=== PATIENT | male | born 1950 | race Caucasian/White ===

== ENCOUNTER 2017-10-27 23:54 | Emergency (ER) | payer MEDICARE, SELFPAY ==
[2017-10-28 00:03] VITALS: BP 106/45; PULSE 95; RESP 22; TEMP 36.3; O2SAT 96
--- NOTE | 2017-10-28 00:35 | DI.REPORT_ITS ---
SYMPTOM/DIAGNOSIS: MID SCAPULAR PAIN FRONTAL AND LATERAL CHEST: Comparison is made with 06/08/16. The heart is enlarged but stable. The lungs are clear. No effusions or pneumothoraces are identified. The bones appear intact. IMPRESSION: No acute pulmonary process.
--- NOTE | 2017-10-28 00:59 | ED.GENADUL ---
Disposition Clinical Impression: Back pain, Muscle spasm Disposition: HOME Condition: Fair Instructions: Muscle Spasm (ED), Back Pain (ED) Additional Instructions: Please follow-up with your primary care physician. Return to the emergency department immediately for any worsening or new concerning symptoms. Referrals: Lala Cortes NP [Primary Care Provider] - Medical Decision Making - Medical Decision Making Medical screening exam was performed. 67-year-old male here with scapular back pain after fall 3 days ago and worse tonight. No focal tenderness on examination of his back and scapula. No chest pain associated with his discomfort. Saturating well in no respiratory distress. Screening chest x-ray was performed and interpreted by radiology: No acute findings. Mild cardiomegaly. Mediastinum was noted to be unremarkable. Bones and joints were noted to be unremarkable. Heart was noted to have enlarged and unchanged cardiac silhouette in comparison to chest x-ray from May 2016. Lungs were noted to be unremarkable with no consolidation. Pleural space was noted to be unremarkable with no pneumothorax. Patient reassessed and noted to be resting comfortably in bed. Patient denies pain on reassessment. Suspect muscle spasm. Patient did abuse alcohol tonight but is clinically sober. Patient was advised to not abuse alcohol. Patient was instructed to follow-up with his primary care physician and encouraged to return immediately should have any worsening or new concerning symptoms. Patient verbalized understanding of discharge instructions. History of Present Illness - General Chief complaint: Orthopedic Stated complaint: CALEX Time Seen by Provider: 10/28/17 00:35 Source: patient, RN notes reviewed Mode of arrival: ambulatory Limitations: no limitations - History of Present Illness Initial comments: 67-year-old male with history of cirrhosis of the liver, alcoholism, presents with chief complaint of back pain. Patient notes pain in his shoulder blade area on the right side that started after a fall down a couple stairs 3 days ago. Pain was improving until tonight when he tweaked it while rolling in a lawn chair. Pain was severe prior to arrival and has significantly improved. Pain is now mild. No associated shortness of breath. No chest pain. No abdominal pain. Patient admits to consuming 12 beers this evening which he notes is a light amount for him. - Related Data Unknown [No Known Home Meds] 10/28/17 Allergies Allergy/AdvReac Type Severity Reaction Status Date / Time No Known Allergies Allergy Unverified 10/28/17 00:12 Review of Systems Constitutional: denies: fever Respiratory: denies: cough, shortness of breath Cardiovascular: denies: chest pain Gastrointestinal: denies: abdominal pain, nausea, vomiting Musculoskeletal: as per HPI Comment: All other systems reviewed and negative Past Medical History - Past Medical History Liver cirrhosis Surgical history: other (Knee arthroscopy) - Social History Alcohol use: heavy, recent General Exam - General Limitations: no limitations General appearance: alert, in no apparent distress - Eye Eye exam: Present: scleral icterus. Absent: conjunctival injection - ENT ENT exam: Present: mucous membranes moist - Neck Neck exam: Present: full ROM - Respiratory Respiratory exam: Present: normal lung sounds bilaterally. Absent: wheezes, rales, rhonchi - Cardiovascular Cardiovascular Exam: Present: regular rate, normal rhythm, normal heart sounds - GI/Abdominal GI/Abdominal exam: Present: soft, normal bowel sounds. Absent: distended, tenderness, guarding, rebound, rigid - Back Exam Back exam: Absent: tenderness, vertebral tenderness - Neurological Exam Neurological exam: Present: alert. Absent: altered - Psychiatric Psychiatric exam: Present: normal affect - Skin Skin exam: Present: warm, dry, intact Course Vital Signs - 24 hr 10/28/17 00:03 Temperature 36.3 C L Pulse 95 H Respiratory 22 Rate Blood Pressure 106/45 Pulse Oximetry 96
--- NOTE | 2017-10-28 01:24 | DI.VRAD_ITS ---
EXAM: XR Chest, 2 Views CLINICAL HISTORY: 67 years old, male; Pain; Other: Mid scapular pain; Patient HX: SOB, mid scapula pain TECHNIQUE: Frontal and lateral views of the chest. COMPARISON: [facility] - PORTABLE CHEST ONE VIEW 06/08/2016 6:29 PM FINDINGS: Lungs: Unremarkable. No consolidation. Pleural space: Unremarkable. No pneumothorax. Heart: Cardiac silhouette is enlarged, unchanged. Mediastinum: Unremarkable. Bones/joints: Unremarkable. IMPRESSION: No acute findings. Mild cardiomegaly. Dictated and Authenticated by: Mao Colmenares MD. Ordering:GILLIAN CAT MD
== END 2017-10-28 02:28 | disposition home or self-care (01) ==
PROVIDERS: Emergency Provider Student in an Organized Health Care Education/Training Program; PCP Nurse Practitioner
DX: M54.6 Pain in thoracic spine (principal); M62.830 Muscle spasm of back; W10.8XXA Fall (on) (from) other stairs and steps, initial encounter; W07.XXXA Fall from chair, initial encounter; F10.288 Alcohol dependence with other alcohol-induced disorder
CPT/HCPCS: 99283; 71046

== ENCOUNTER 2018-01-22 15:43 | Emergency (ER) | payer MEDICARE, SELFPAY ==
[2018-01-22 15:53] VITALS: BP 135/76; PULSE 109; RESP 20; TEMP 36.7; O2SAT 99
[2018-01-22] MEDS: Cyclobenzaprine 10 MG TAB PO ×2 (16:20→18:11)
[2018-01-22] MEDS: Ibuprofen 400 MG TAB PO (16:20)
[2018-01-22] MEDS: Acetaminophen 325 MG TAB 650 MG PO (16:20)
[2018-01-22] MEDS: Lidocaine 5% Patch 1 PATCH TP (16:23)
--- NOTE | 2018-01-22 16:54 | DI.RAD_ITS ---
SYMPTOM/DIAGNOSIS: BACK PAIN LUMBAR SPINE. The exam is limited by the patient's body habitus. Comparison is made with CT dated 13 March 2016. There is mild compression of the superior end plate of L3 which appears increased when compared with the previous exam. The remaining vertebral bodies appear stable Degenerative changes are noted. The aorta is calcified. IMPRESSION: Mild compression of the superior end plate of L3 of indeterminate age, since the previous CT of 2016.
--- NOTE | 2018-01-22 17:29 | DI.VRAD_ITS ---
EXAM: XR Lumbar Spine, 4 or 5 Views EXAM DATE/TIME: 01/22/2018 4:51 PM CLINICAL HISTORY: 67 years old, male; Pain; Low back pain; Patient HX: Back pain; Per PT: Lifting something TECHNIQUE: XR of the lumbar spine, 4 or 5 views. COMPARISON: LUMBAR SPINE RECONSTRUCTIONS 03/13/2016 6:56 PM FINDINGS: Vertebrae: Osteopenia. Interval age indeterminate senescent-type compression deformities T10-L1 and and L3. Spondylosis and facet arthrosis Vasculature: Vascular calcifications. Soft tissues: Normal. IMPRESSION: Multiple age indeterminate senescent-type compression deformities T10-L1 and L3. Dictated and Authenticated by: Joyce Oden MD. Ordering:EVERARDO PHILLIPS MD
--- NOTE | 2018-01-22 18:02 | W.ED.GENAD ---
Discharge Plan Disposition Patient Disposition: HOME Condition: Stable Discharge Details Chief Complaint: Nk/Back Pain Clinical Impression: Lumbar back sprain Primary Care Provider: Lala Cortes ED Provider: Wolfgang Contreras Home Meds and New Rx's Prescriptions: New cyclobenzaprine 5 mg tablet 5 mg PO TID PRN (Reason: muscle spasm) Qty: 15 RF: 0 Discharge Instructions Instructions: Low Back Strain (ED), Lower Back Exercises (ED) Additional Instructions: For pain control you may take 650mg of acetaminophen and 400mg of ibuprofen every 6 hours as needed for pain. These are both available [id number]. You may also use [id number] lidocaine cream or patch just take as directed on packaging. Please follow-up with your primary care provider if not improving over the next week. Feel free to return immediately to the emergency department for any new or significant worsening of your symptoms Referrals: Lala Cortes, H[employer] PASTER [Primary Care Provider] - 1 week (As needed for reassessment or if not improving) Discharge Data Discharge Date/Time-TO BE ENTERED AT DEPARTURE: 01/22/18 18:18 Medical Decision Making Patient presenting to the emergency department for chief complaint of low back pain. He states approximately 1 weeks a week ago he was lifting something heavy when he felt a pulling sharp sensation in his left low back. Patient denies any injury or falls and any known trauma. Physical exam is positive for paraspinal tenderness but there is no vertebral tenderness or step-off needed. Patient is noted to have issues with alcohol and states he drinks a lot and so radiological imaging of the back was ordered. Patient is otherwise ambulatory with no signs of emergent back pain including cauda equina, epidural abscess, or spinal cord compression. Acetaminophen, Motrin, Flexeril, and lidocaine patch were given pending results. Review of radiological imaging shows indeterminate age of compression fractures of T10 L1 and L3. Patient reassessed and states significant improvement of his symptoms after receiving medications. Patient questioned again about any possibility of falls and he denies any falls and that this all occurred while lifting something. Given this I feel that the compression fractures are more than likely subacute and do not need any significant attention given that this is more of a lifting I feel that this is a lumbar sprain/strain. Patient was encouraged to continue use [id number] therapy and prescribed Flexeril since this seemed to be effective at controlling patient's discomfort. Patient encouraged to return for any new or significant worsening of symptoms otherwise to follow-up with primary care as needed if not improving over the next 1-2 weeks HPI General Mode of arrival: ambulatory. Date/Time Provider Initiated Documentation: 01/22/18 16:01. Limitations to Documentation: no limitations. Information obtained by: patient and RN notes reviewed. History of Present Illness 67 year old M presents to the emergency department with the chief complaint of back pain, described as severe, with intensity rated at 4. Quality is described as aching and sharp, and is localized to the back. Patient reports no radiation. Patient started experiencing this week(s) (1) and it has been constant. No relieving factors improve symptom(s), Movement worsens symptoms . Patient notes no other symptoms.. Patient did receive the following treatments prior to arrival, none Related Data Home Medications Medication Instructions Recorded Confirmed cyclobenzaprine 5 mg PO TID PRN #15 tab 01/22/18 Previous Rx's Medication Instructions Recorded cyclobenzaprine 5 mg PO TID PRN #15 tab 01/22/18 Allergies Allergy/AdvReac Type Severity Reaction Status Date / Time No Known Allergies Allergy Unverified 01/22/18 16:25 General Stated Complaint: Nk/Back Pain GILBERTO: 4 Review of Systems Constitutional Denies chills and Denies fever(s) Cardiovascular Denies chest pain and Denies dyspnea on exertion Respiratory Denies dyspnea on exertion Gastrointestinal Denies abdominal pain, Denies change in bowel habits, Denies diarrhea, Denies nausea and Denies vomiting Genitourinary Denies difficulty urinating and Denies urinary incontinence Musculoskeletal Reports as per HPI and Reports back pain Neurologic Denies sensory deficit PFS Family History Mother COPD (chronic obstructive pulmonary disease) Father Substance abuse Neoplasm Sister Migraines Medical History Blunt chest trauma History of alcohol abuse TIA (transient ischemic attack) (~2003) Social History Smoking/Tobacco Use Status: Former Tobacco Use Surgical History Clavicle Surgery Colonoscopy - MAC (01/24/17) EGD, diagnostic (03/21/16) Tibia Fracture Surgery diagnstic EGD (03/21/16) Exam Const General: cooperative and no acute distress Orientation: alert, awake and oriented x3 Neck Neck: normal visual inspection, full ROM and no meningeal signs Resp Effort & Inspection: normal respiratory effort Auscultation: clear to auscultation bilaterally Cardio Rate: regular rate Rhythm: regular rhythm Heart Sounds: S1 normal and S2 normal GI Palpation: no hepatosplenomegaly, no aortic enlargement, no masses and no pulsatile masses Back/Spine/Pelvis Cervical Spine: normal cervical lordosis Thoracic/Lumbar Spine: pain with thoraco-lumbar ROM, paraspinal tenderness, thoraco-lumbar ROM limited and No lumbar spinal tenderness Pelvis: no pain with anterior-posterior compression and no pain with lateral compression Neuro General: alert, awake and oriented x3 Extrem Right lower extremity: normal to inspection Left lower extremity: normal to inspection Course Vital Signs Temperature 36.7 C 01/22/18 15:53 Pulse 109 H 01/22/18 15:53 Respiratory Rate 20 01/22/18 15:53 Blood Pressure 135/76 01/22/18 15:53 Pulse Oximetry 99 01/22/18 15:53 Temperature 36.7 C 01/22/18 15:53 Temperature Source Temporal Artery Scan 01/22/18 15:53 Pulse 109 H 01/22/18 15:53 Respiratory Rate 20 01/22/18 15:53 Respiratory Effort Non-Labored 01/22/18 15:55 Blood Pressure 135/76 01/22/18 15:53 Pulse Oximetry 99 01/22/18 15:53 Oxygen Delivery Method Room Air 01/22/18 15:53 Oxygen Flow Rate 0 01/22/18 15:53 Pain Level 20 01/22/18 16:25
--- NOTE | 2018-01-22 18:11 | ED.GENADUL_ITS ---
Discharge Plan Disposition Patient Disposition: HOME Condition: Stable Discharge Details Chief Complaint: Nk/Back Pain Clinical Impression: Lumbar back sprain Primary Care Provider: Lala Cortes ED Provider: Wolfgang Contreras Home Meds and New Rx's Prescriptions: New cyclobenzaprine 5 mg tablet 5 mg PO TID PRN (Reason: muscle spasm) Qty: 15 RF: 0 Discharge Instructions Instructions: Low Back Strain (ED), Lower Back Exercises (ED) Additional Instructions: For pain control you may take 650mg of acetaminophen and 400mg of ibuprofen every 6 hours as needed for pain. These are both available [id number]. You may also use fgyi-[id number] lidocaine cream or patch just take as directed on packaging. Please follow-up with your primary care provider if not improving over the next week. Feel free to return immediately to the emergency department for any new or significant worsening of your symptoms Referrals: Lala Cortes, [employer] ANALYST [Primary Care Provider] - 1 week (As needed for reassessment or if not improving) Discharge Data Discharge Date/Time-TO BE ENTERED AT DEPARTURE: 01/22/18 18:18 Medical Decision Making Patient presenting to the emergency department for chief complaint of low back pain. He states approximately 1 weeks a week ago he was lifting something heavy when he felt a pulling sharp sensation in his left low back. Patient denies any injury or falls and any known trauma. Physical exam is positive for paraspinal tenderness but there is no vertebral tenderness or step-off needed. Patient is noted to have issues with alcohol and states he drinks a lot and so radiological imaging of the back was ordered. Patient is otherwise ambulatory with no signs of emergent back pain including cauda equina, epidural abscess, or spinal cord compression. Acetaminophen, Motrin, Flexeril, and lidocaine patch were given pending results. Review of radiological imaging shows indeterminate age of compression fractures of T10 L1 and L3. Patient reassessed and states significant improvement of his symptoms after receiving medications. Patient questioned again about any possibility of falls and he denies any falls and that this all occurred while lifting something. Given this I feel that the compression fractures are more than likely subacute and do not need any significant attention given that this is more of a lifting I feel that this is a lumbar sprain/strain. Patient was encouraged to continue use [id number] therapy and prescribed Flexeril since this seemed to be effective at controlling patient's discomfort. Patient encouraged to return for any new or significant worsening of symptoms otherwise to follow-up with primary care as needed if not improving over the next 1-2 weeks HPI General Mode of arrival: ambulatory . Date/Time Provider Initiated Documentation: 01/22/18 16:01 . Limitations to Documentation: no limitations . Information obtained by: patient and RN notes reviewed . History of Present Illness 67 year old M presents to the emergency department with the chief complaint of back pain, described as severe, with intensity rated at 4. Quality is described as aching and sharp, and is localized to the back. Patient reports no radiation. Patient started experiencing this week(s) (1) and it has been constant. No relieving factors improve symptom(s), Movement worsens symptoms . Patient notes no other symptoms.. Patient did receive the following treatments prior to arrival, none Related Data Home Medications Medication Instructions Recorded Confirmed cyclobenzaprine 5 mg PO TID PRN #15 tab 01/22/18 Previous Rx's Medication Instructions Recorded cyclobenzaprine 5 mg PO TID PRN #15 tab 01/22/18 Allergies Allergy/AdvReac Type Severity Reaction Status Date / Time No Known Allergies Allergy Unverified 01/22/18 16:25 General Stated Complaint: Nk/Back Pain GILBERTO: 4 Review of Systems Constitutional Denies chills and Denies fever(s) Cardiovascular Denies chest pain and Denies dyspnea on exertion Respiratory Denies dyspnea on exertion Gastrointestinal Denies abdominal pain, Denies change in bowel habits, Denies diarrhea, Denies nausea and Denies vomiting Genitourinary Denies difficulty urinating and Denies urinary incontinence Musculoskeletal Reports as per HPI and Reports back pain Neurologic Denies sensory deficit PFS Family History Mother COPD (chronic obstructive pulmonary disease) Father Substance abuse Neoplasm Sister Migraines Medical History Blunt chest trauma History of alcohol abuse TIA (transient ischemic attack) (~2003) Social History Smoking/Tobacco Use Status: Former Tobacco Use Surgical History Clavicle Surgery Colonoscopy - MAC (01/24/17) EGD, diagnostic (03/21/16) Tibia Fracture Surgery diagnstic EGD (03/21/16) Exam Const General: cooperative and no acute distress Orientation: alert, awake and oriented x3 Neck Neck: normal visual inspection, full ROM and no meningeal signs Resp Effort & Inspection: normal respiratory effort Auscultation: clear to auscultation bilaterally Cardio Rate: regular rate Rhythm: regular rhythm Heart Sounds: S1 normal and S2 normal GI Palpation: no hepatosplenomegaly, no aortic enlargement, no masses and no pulsatile masses Back/Spine/Pelvis Cervical Spine: normal cervical lordosis Thoracic/Lumbar Spine: pain with thoraco-lumbar ROM, paraspinal tenderness, thoraco-lumbar ROM limited and No lumbar spinal tenderness Pelvis: no pain with anterior-posterior compression and no pain with lateral compression Neuro General: alert, awake and oriented x3 Extrem Right lower extremity: normal to inspection Left lower extremity: normal to inspection Course Vital Signs Temperature 36.7 C 01/22/18 15:53 Pulse 109 H 01/22/18 15:53 Respiratory Rate 20 01/22/18 15:53 Blood Pressure 135/76 01/22/18 15:53 Pulse Oximetry 99 01/22/18 15:53 Temperature 36.7 C 01/22/18 15:53 Temperature Source Temporal Artery Scan 01/22/18 15:53 Pulse 109 H 01/22/18 15:53 Respiratory Rate 20 01/22/18 15:53 Respiratory Effort Non-Labored 01/22/18 15:55 Blood Pressure 135/76 01/22/18 15:53 Pulse Oximetry 99 01/22/18 15:53 Oxygen Delivery Method Room Air 01/22/18 15:53 Oxygen Flow Rate 0 01/22/18 15:53 Pain Level 20 01/22/18 16:25
== END 2018-01-22 18:18 | disposition home or self-care (01) ==
PROVIDERS: Emergency Provider Nurse Practitioner Family; PCP Nurse Practitioner
DX: S33.5XXA Sprain of ligaments of lumbar spine, initial encounter (principal); X50.0XXA Overexertion from strenuous movement or load, initial encounter
CPT/HCPCS: 99283; 72110

== ENCOUNTER 2018-02-09 03:43 | Emergency (ER) | payer MEDICARE, SELFPAY ==
--- NOTE | 2018-02-09 03:55 | W.ED.GENAD ---
Discharge Plan Disposition Patient Disposition: [facility] Condition: Critical Discharge Details Clinical Impression: Acute upper GI bleed Reason For Visit: ALISSA Primary Care Provider: Lala Cortes ED Provider: Damion Hilario Home Meds and New Rx's Prescriptions: No Action cyclobenzaprine 5 mg tablet 5 mg PO TID PRN (Reason: muscle spasm) Qty: 15 RF: 0 Medical Decision Making 67 yo male with hx of alcoholishm, prior afib, denies being on meds at this time, who comes in with black stools and n/v with intermittent blood for about 3 hours. Denies having this problem in the past and has never had endoscopy per the patient. HE does have melena on rectal exam and guaic positive. Will obtain lab work and initiate ppi and also cover for possible variceal bleed with octreotide and ceftriaxone pt was here during downtime of medical record. HIs labs came back showing hgb of 6, elevated lfts and inr of 1.6 likely from his cirrhosis and GI bleed. He did have vomit of significant amount of blood and so NG tube was placed. He had 5 units of prbc's and 2 units frozen plasma, initially his bp was in the 80's systolic then increased to 110/60 with the transfusions and fluids. He [place] [facility] given high likelihood of having varices given his etoh hx and cirrhosis Differential Diagnosis upper gi bleed, varices, ulcer Lab Data Lab results reviewed: Yes I reviewed the patient's lab results. HPI General Mode of arrival: EMS. Date/Time Provider Initiated Documentation: 02/09/18 03:51. Limitations to Documentation: no limitations. Information obtained by: patient and EMS. History of Present Illness 67 year old M presents to the emergency department with the chief complaint of black stools and vomit blood, described as moderate, Patient started experiencing this hour(s) (3) and it has been constant. No relieving factors improve symptom(s), No exacerbating factors reported . Patient did receive the following treatments prior to arrival, none Related Data Home Medications Medication Instructions Recorded Confirmed cyclobenzaprine 5 mg PO TID PRN #15 tab 01/22/18 Previous Rx's Medication Instructions Recorded cyclobenzaprine 5 mg PO TID PRN #15 tab 01/22/18 Allergies Allergy/AdvReac Type Severity Reaction Status Date / Time No Known Allergies Allergy Unverified 01/22/18 16:25 General GILBERTO: 4 Review of Systems Review of Systems All systems reviewed & are unremarkable except as noted in HPI and below Constitutional Denies chills, Denies fever(s) and Denies weakness ENT Denies change in voice Cardiovascular Denies chest pain and Denies dyspnea Respiratory Denies dyspnea Gastrointestinal Denies abdominal pain Integumentary/Breasts Denies rash Neurologic Denies weakness Psychiatric Denies depression Endocrine Denies cold intolerance and Denies heat intolerance PFSH Blunt chest trauma History of alcohol abuse TIA (transient ischemic attack) (~2003) Family History Mother COPD (chronic obstructive pulmonary disease) Father Substance abuse Neoplasm Sister Migraines Clavicle Surgery Colonoscopy - MAC (01/24/17) EGD, diagnostic (03/21/16) Tibia Fracture Surgery diagnstic EGD (03/21/16) Family History Mother COPD (chronic obstructive pulmonary disease) Father Substance abuse Neoplasm Sister Migraines Medical History Blunt chest trauma History of alcohol abuse TIA (transient ischemic attack) (~2003) Social History Smoking/Tobacco Use Status: Former Tobacco Use Surgical History Clavicle Surgery Colonoscopy - MAC (01/24/17) EGD, diagnostic (03/21/16) Tibia Fracture Surgery diagnstic EGD (03/21/16) Social History Smoking/Tobacco Use Status: Former Tobacco Use Exam Const General: no acute distress Orientation: alert HENMT Head: normal to inspection Ears: external ears normal General nose exam: external nose normal Mouth: moist mucous membranes Eyes General: appearance normal, both eyes and all related structures Neck Neck: normal visual inspection Resp Effort & Inspection: normal respiratory effort and able to speak in complete sentences Cardio Jugular venous pressure: no JVD Rate: tachycardic Rhythm: regular rhythm Skin General skin exam: no rashes or lesions noted Neuro General: alert and oriented x3 Extrem General: normal to inspection Psych Mental Status: mental status grossly normal Critical Care Time Critical Care Time: Yes Total Critical Care Time: 90 Attestation: time spent performing frequent reassessments, hemodynamic monitoring and review of labs in patient with upper gi bleed and hypotension and requiring transfusion and potential to deteriorate at any time
--- NOTE | 2018-02-09 03:58 | ED.GENADUL_ITS ---
Discharge Plan Disposition Patient Disposition: [facility] Condition: Critical Discharge Details Clinical Impression: Acute upper GI bleed Reason For Visit: ALISSA Primary Care Provider: Lala Cortes ED Provider: Damion Hilario Home Meds and New Rx's Prescriptions: No Action cyclobenzaprine 5 mg tablet 5 mg PO TID PRN (Reason: muscle spasm) Qty: 15 RF: 0 Medical Decision Making 67 yo male with hx of alcoholishm, prior afib, denies being on meds at this time, who comes in with black stools and n/v with intermittent blood for about 3 hours. Denies having this problem in the past and has never had endoscopy per the patient. HE does have melena on rectal exam and guaic positive. Will obtain lab work and initiate ppi and also cover for possible variceal bleed with octreotide and ceftriaxone pt was here during downtime of medical record. HIs labs came back showing hgb of 6, elevated lfts and inr of 1.6 likely from his cirrhosis and GI bleed. He did have vomit of significant amount of blood and so NG tube was placed. He had 5 units of prbc's and 2 units frozen plasma, initially his bp was in the 80's systolic then increased to 110/60 with the transfusions and fluids. [place] [facility] [place] high likelihood of having varices given his etoh hx and cirrhosis Differential Diagnosis upper gi bleed, varices, ulcer Lab Data Lab results reviewed: Yes I reviewed the patient's lab results. HPI General Mode of arrival: EMS . Date/Time Provider Initiated Documentation: 02/09/18 03:51 . Limitations to Documentation: no limitations . Information obtained by: patient and EMS . History of Present Illness 67 year old M presents to the emergency department with the chief complaint of black stools and vomit blood, described as moderate, Patient started experiencing this hour(s) (3) and it has been constant. No relieving factors improve symptom(s), No exacerbating factors reported . Patient did receive the following treatments prior to arrival, none Related Data Home Medications Medication Instructions Recorded Confirmed cyclobenzaprine 5 mg PO TID PRN #15 tab 01/22/18 Previous Rx's Medication Instructions Recorded cyclobenzaprine 5 mg PO TID PRN #15 tab 01/22/18 Allergies Allergy/AdvReac Type Severity Reaction Status Date / Time No Known Allergies Allergy Unverified 01/22/18 16:25 General GILBERTO: 4 Review of Systems Review of Systems All systems reviewed & are unremarkable except as noted in HPI and below Constitutional Denies chills, Denies fever(s) and Denies weakness ENT Denies change in voice Cardiovascular Denies chest pain and Denies dyspnea Respiratory Denies dyspnea Gastrointestinal Denies abdominal pain Integumentary/Breasts Denies rash Neurologic Denies weakness Psychiatric Denies depression Endocrine Denies cold intolerance and Denies heat intolerance PFSH Blunt chest trauma History of alcohol abuse TIA (transient ischemic attack) (~2003) Family History Mother COPD (chronic obstructive pulmonary disease) Father Substance abuse Neoplasm Sister Migraines Clavicle Surgery Colonoscopy - MAC (01/24/17) EGD, diagnostic (03/21/16) Tibia Fracture Surgery diagnstic EGD (03/21/16) Family History Mother COPD (chronic obstructive pulmonary disease) Father Substance abuse Neoplasm Sister Migraines Medical History Blunt chest trauma History of alcohol abuse TIA (transient ischemic attack) (~2003) Social History Smoking/Tobacco Use Status: Former Tobacco Use Surgical History Clavicle Surgery Colonoscopy - MAC (01/24/17) EGD, diagnostic (03/21/16) Tibia Fracture Surgery diagnstic EGD (03/21/16) Social History Smoking/Tobacco Use Status: Former Tobacco Use Exam Const General: no acute distress Orientation: alert HENMT Head: normal to inspection Ears: external ears normal General nose exam: external nose normal Mouth: moist mucous membranes Eyes General: appearance normal, both eyes and all related structures Neck Neck: normal visual inspection Resp Effort & Inspection: normal respiratory effort and able to speak in complete sentences Cardio Jugular venous pressure: no JVD Rate: tachycardic Rhythm: regular rhythm Skin General skin exam: no rashes or lesions noted Neuro General: alert and oriented x3 Extrem General: normal to inspection Psych Mental Status: mental status grossly normal Critical Care Time Critical Care Time: Yes Total Critical Care Time: 90 Attestation: time spent performing frequent reassessments, hemodynamic monitoring and review of labs in patient with upper gi bleed and hypotension and requiring transfusion and potential to deteriorate at any time
[2018-02-09 06:40] LABS: ALT 27 U/L (12-78); AST 46 U/L (15-37); Abs Immature Grans 0.03 k/cumm (0.0-0.09); Absolute Basophil Count 0.04 k/cumm (0.0-0.2); Absolute Eosinophil Count 0.01 k/cumm (0.0-0.7); Absolute Lymphocyte Count 1.07 k/cumm (1.2-3.4); Absolute Monocyte Count 1.06 k/cumm (0.11-0.7); Absolute Neutrophil Count 6.79 k/cumm (1.2-6.7); Albumin 2.4 g/dL (3.4-5.0); Alkaline Phosphatase 138 U/L (46-116); Anion Gap 15.7 mmol/L (3-11); BUN 30 mg/dL (7-18); Basophils % 0.4; Bilirubin, Direct 1.96 mg/dL (0.00-0.20); Bilirubin, Total 4.2 mg/dL (0.2-1.0); CO2 21.3 mmol/L (21.0-32.0); CREATININE 1.27 mg/dL (0.70-1.30); Calcium 8.6 mg/dL (8.5-10.1); Chloride 102 mmol/L (98-107); Eosinophils % 0.1; Estimated GFR 56.74 (mL/min/1.73m2); Glucose 124 mg/dL (70-100); Immature Grans % 0.3; Lipase 38 U/L (73-393); Lymphocytes % 11.9; Magnesium 1.6 mg/dL (1.8-2.4); Mean Corp. HGB Concentration 33.5 g/dL (32.0-36.0); Mean Corpuscular Hemoglobin 36.5 pg (27.0-33.0); Monocytes % 11.8; Neutrophils % 75.5; Platelet Count 137 x1000/uL (130-400); Potassium 4.3 mmol/L (3.5-5.1); RBC 1.67 m/cumm (4.50-6.00); RBC Distribution Width 18.6 % (11.8-14.1); Sodium 139 mmol/L (136-145); Troponin I 0.03 ng/mL (0.00-0.06)
[2018-02-09 06:53] LABS: INR 1.7 (1.0-3.5); PTT Activated 24.9 sec (21.0-31.4); Prothrombin Time 16.3 sec (9.3-10.8)
--- NOTE | 2018-02-09 06:58 | NUR.NOTE ---
Nursing Note: all charting done on paper d/t computer downtime- pt awaiting ambulance transport to [facility] [place]
[2018-02-09 06:59] LABS: HGB 6.1 g/dL (13.5-17.5)
[2018-02-09 07:00] LABS: HCT 18.2 % (40.0-50.0)
[2018-02-09 07:01] LABS: Anisocytosis 2+; Diff Comment RBC Morph Reviewed; Target Cells 2+
[2018-02-09 07:02] LABS: Hypochromasia 2+; Polychromasia Present
[2018-02-09 07:03] LABS: Poikilocytes 1+
[2018-02-09 07:05] LABS: ETHANOL BLOOD < 3.0 mg/dL (<3)
== END 2018-02-09 18:14 | disposition short-term general hospital (02) ==
PROVIDERS: Emergency Provider Emergency Medicine; PCP Nurse Practitioner
DX: K92.2 Gastrointestinal hemorrhage, unspecified (principal); I95.89 Other hypotension; K74.69 Other cirrhosis of liver
CPT/HCPCS: 36415; 36430; 80053; 80076; 83690; 86850; 86900; 86901; 86920; 96361; 96365; 96366; 96375; 99291; 99292; 80320; 83735; 84484; 85025; 85610; 85730; J2354; J2405; P9016; P9059

== ENCOUNTER 2018-03-17 11:53 | Emergency (ER) | payer MEDICARE, SELFPAY ==
[2018-03-17] VITALS (9 sets, daily range): BP systolic 94–136; BP diastolic 61–89; PULSE 71–125; RESP 14–20; TEMP 36.5–37; O2SAT 95–100
--- NOTE | 2018-03-17 13:08 | PDOC.ERCMPRO ---
Care Management Progress Note 03/17-Met with Kun at the request of Dr George. Kun had stated to EMS that he could not live at home anymore. Kun's chief complaint is back pain from lifting a couple weeks ago. Met with Kun. Knu states he was discharged recently from rehab (He states he can't remember the name). States he has home health(but hasn't seen anyone and is not sure what he has for services). States he has to have someone plow his driveway as he can't do that anymore. States there is a rat in his house. Throughout conversation with Kun he just kept saying he needed to go somewhere. Send me to a alcohol rehab, I don't care, I just need to go somewhere. Explained to Kun that the provider can not just send him somewhere and that there needed to be clinical reason for admission, SNF placement, or transfer. Kun verbalizes understanding of the process. Kun lives alone in his own home in [place]. States closest family lives in [place] and has given this permission to call brother Selvin and sister China. Kun only has Medicare Part A & B. Double checked with Murali in [employer] and she states he does not have Medicaid nor does he have a supplement insurance. Kun uses a walker at home and states he has difficulty getting around. This CM requested a PT consult from Dr. George. Called Home Health and spoke with Rajwinder. Rajwinder stated that they have reached out to Kun seven times and he has refused to have them come, the last time stating he didn't want services. Kun was slated to have home health PT/OT and nursing. [facility] [place] and spoke with Yane. Yane stated that Kun had been discharged from PT/OT and nursing and that he wasn't skilled anymore. Yane did mention that he would probably do well in an assisted living. Called [facility] at [facility] and they only have a private pay bed available. Expecting another bed opening next week and stated he would take referral. Will discuss this with Kun and fax to Elgin at [phone] if Kun is interested. [facility] Level 3 beds are full. Will need to discuss payment for level 3 with Kun as he does not currently have a mechanism of payment. Kun did give this CM permission to call his brother Selvin. Called Selvin's cell phone, and left a voice message. Called Kun's sister China at the number listed in chart, no answer but left a message on her answering machine requesting call back. Will see how Kun is doing after PT consult and Dr. George's recommendations.
--- NOTE | 2018-03-17 13:27 | CMPROGNOTE_ITS ---
Care Management Progress Note 03/17-Met with Kun at the request of Dr George. Kun had stated to EMS that he could not live at home anymore. Kun's chief complaint is back pain from lifting a couple weeks ago. Met with Kun. Kun states he was discharged recently from rehab (He states he can't remember the name). States he has home health(but hasn't seen anyone and is not sure what he has for services). States he has to have someone plow his driveway as he can't do that anymore. States there is a rat in his house. Throughout conversation with Kun he just kept saying he needed to go somewhere. Send me to a alcohol rehab, I don't care, I just need to go somewhere. Explained to Kun that the provider can not just send him somewhere and that there needed to be clinical reason for admission, SNF placement, or transfer. Kun verbalizes understanding of the process. Kun lives alone in his own home in [place]. States closest family lives in [place] and has given this permission to call brother Selvin and sister China. Kun only has Medicare Part A & B. Double checked with Murali in [employer] and she states he does not have Medicaid nor does he have a supplement insurance. Kun uses a walker at home and states he has difficulty getting around. This CM requested a PT consult from Dr. George. Called Home Health and spoke with Rajwinder. Rajwinder stated that they have reached out to Kun seven times and he has refused to have them come, the last time stating he didn't want services. Kun was slated to have home health PT/OT and nursing. [facility] [place] and spoke with Yane. Yane stated that Kun had been discharged from PT/OT and nursing and that he wasn't skilled anymore. Yane did mention that he would probably do well in an assisted living. Called [facility] at [facility] and they only have a private pay bed available. Expecting another bed opening next week and stated he would take referral. Will discuss this with Kun and fax to [facility] at [phone] if Kun is interested. The [facility] Level 3 beds are full. Will need to discuss payment for level 3 with Kun as he does not currently have a mechanism of payment. Kun did give this CM permission to call his brother Selvin. Called Selvin's cell phone, and left a voice message. Called Kun's sister China at the number listed in chart, no answer but left a message on her answering machine requesting call back. Will see how Kun is doing after PT consult and Dr. George's recommendations.
--- NOTE | 2018-03-17 13:38 | W.ED.GENAD ---
Discharge Plan Disposition Patient Disposition: HOME Condition: Stable Discharge Details Chief Complaint: Nk/Back Pain Clinical Impression: Chronic back pain, History of atrial fibrillation Primary Care Provider: Lala Cortes ED Provider: Regina George Home Meds and New Rx's Prescriptions: New cyclobenzaprine 10 mg tablet 10 mg PO TID PRN (Reason: muscle spasm) Qty: 10 RF: 0 Continued furosemide 40 mg tablet 40 mg PO DAILY PRNRF: 0 spironolactone 100 mg tablet PO DAILY RF: 0 propranolol 40 mg tablet 40 mg PO ONCE RF: 0 propranolol 20 mg tablet 20 mg PO ONCE RF: 0 acetaminophen 325 mg capsule 650 mg PO Q8H PRN RF: 0 magnesium oxide 400 mg capsule 400 mg PO BID PRNRF: 0 cyclobenzaprine 5 mg tablet 5 mg PO TID PRN (Reason: muscle spasm) Qty: 15 RF: 0 Discharge Instructions Instructions: Chronic Back Pain (ED) Additional Instructions: Alternate Tylenol and Motrin as needed and directed for pain. Alternate ice and heat to the affected area several times daily for 20 minutes at a time. Take your regular medications as directed. Refrain from abusing alcohol. If you decide to stop drinking, make sure you do it safely under the direction of a physician or detox. Call your primary care doctor on Tuesday morning to schedule follow-up appointment for reevaluation. Discharge Data Discharge Date/Time-TO BE ENTERED AT DEPARTURE: 03/17/18 18:14 Discharge Physician: Regina George Medical Decision Making 67-year-old male with a history of chronic alcohol abuse, with history of acute GI bleed due to esophageal varices status post banding at [facility] last month who presents for lower back pain for the past 5 weeks. Patient states he lifted a keg of beer a few weeks ago. Per records, patient had been in the hospital, so then he states it was prior to this so may have been 5-6 weeks ago. Patient was transferred to a rehab after [facility], and was discharged from the rehab 2 days ago. Patient states he is having difficulty with ADLs at home due to his pain and thinks he was discharged too soon from rehab. No chest pain, shortness of breath, abdominal pain, cauda equina symptoms. No focal deficits. Heart rate 120s. Appears consistent with atrial fibrillation. Also states his back pain is mid to lower back. Will obtain an EKG and chest x-ray to rule out widened mediastinum. At this point time I do not see an indication for acute lab work as he denies any chest pain shortness of breath or dizziness. Will give a dose of oxycodone and Valium p.o. for his pain. Case discussed with Jael from care management and he had refused home health. If no acute indication for admission, can likely be discharged home with plan for home health if patient is agreeable. No rehab would be available for transfer today or this weekend. EKG notes a rate of 114, atrial fibrillation, no acute ST elevation. Less than [address] depression in V3 seen in previous EKG. Patient has not yet taken his dose of propranolol. Will give now and reassess. 1600 --CXR negative. Heart rate has been stable in the 70s-80s. He has no complaints of chest pain or shortness of breath. Patient was able to ambulate around the ED with his walker which is his baseline. Did not did not want to go home. Care management discussed again with him at bedside and stated that he is open to home health but he refused them in the past because he did not think they could get into his home because of his dry weight is not mild. Care management offered him a intermediate but he is now agreeable with going home. Medical Records Medical records reviewed: Yes I reviewed the patient's medical records. Lab Data Lab results reviewed: Yes I reviewed the patient's lab results. Laboratory Tests Range/Units 03/17/18 03/17/18 14:55 14:55 WBC (4.4-10.8) k/cumm 5.37 RBC (4.50-6.00) m/cumm 3.54 L Hgb (13.5-17.5) g/dL 11.9 L Hct (40.0-50.0) % 34.0 L MCV (80-95) fL 96.0 H MCH (27.0-33.0) pg 33.6 H MCHC (32.0-36.0) g/dL 35.0 RDW (11.8-14.1) % 17.9 H Plt Count (130-400) x1000/uL 103 L MPV (8.0-11.0) fL 12.5 H Immature Gran % 0.0 Neutrophils % 51.4 Lymphocytes % 23.1 Monocytes % 22.5 Eosinophils % 2.4 Basophils % 0.6 Absolute Neutrophils (1.2-6.7) k/cumm 2.76 Absolute Lymphocytes (1.2-3.4) k/cumm 1.24 Absolute Monocytes (0.11-0.7) k/cumm 1.21 H Absolute Eosinophils (0.0-0.7) k/cumm 0.13 Absolute Basophils (0.0-0.2) k/cumm 0.03 Sodium (136-145) mmol/L 133 L Potassium (3.5-5.1) mmol/L 4.2 Chloride (98-107) mmol/L 97 L Carbon Dioxide (21.0-32.0) mmol/L 27.5 Anion Gap (3-11) mmol/L 8.5 BUN (7-18) mg/dL 14 Creatinine (0.70-1.30) mg/dL 1.26 Estimated GFR/1.73 m2 (mL/min/1.73m2) 57.26 Glucose (70-100) mg/dL 96 Calcium (8.5-10.1) mg/dL 9.2 Magnesium (1.8-2.4) mg/dL 1.7 L Total Bilirubin (0.2-1.0) mg/dL 2.8 H AST (15-37) U/L 42 H ALT (12-78) U/L 31 Alkaline Phosphatase (46-116) U/L 141 H Troponin I (0.00-0.06) ng/mL 0.02 Total Protein (6.4-8.2) g/dL 6.7 Albumin (3.4-5.0) g/dL 3.1 L ECG Data Attestation: I personally reviewed and interpreted this ECG (s) as follows: Interpretation: 1342 -- 114, atrial fibrillation, less than 1mm ST depression in V3 which is seen in previous, QTc 463, QRS 106. No acute ST elevation. HPI General Mode of arrival: EMS. Date/Time Provider Initiated Documentation: 03/17/18 12:15. Limitations to Documentation: no limitations. Information obtained by: patient. HPI Narrative: Patient is a 67-year-old male with a history of chronic alcohol abuse, TIA, acute GI bleed due to esophageal varices 1 month ago s/p esophageal banding who presents to the ED with a complaint of back pain for the past 5 weeks. Patient states it started after lifting a keg. He initially stated it was 2 weeks ago, but based on medical records, patient had been in the hospital at that time. This was discussed with him and he now states it happened approximately 5 weeks ago. Patient states he has been able to ambulate but with pain. He has been taking Tylenol for pain without relief. Patient denies any fever, abdominal pain, urinary or fecal incontinence, saddle anesthesia, leg pain or weakness. He states he ambulates with a cane or walker at home. Patient states he needs help at home with chores due to his back pain. Related Data Home Medications Medication Instructions Recorded Confirmed cyclobenzaprine 5 mg PO TID PRN #15 tab 01/22/18 acetaminophen 325 mg capsule 650 mg PO Q8H PRN cap 03/06/18 03/17/18 furosemide 40 mg tablet 40 mg PO DAILY PRN 03/06/18 magnesium oxide 400 mg capsule 400 mg PO BID PRN cap 03/06/18 propranolol 20 mg tablet 20 mg PO ONCE tab 03/06/18 propranolol 40 mg tablet 40 mg PO ONCE tab 03/06/18 spironolactone 100 mg tablet PO DAILY tab 03/06/18 cyclobenzaprine 10 mg PO TID PRN #10 tab 03/17/18 Previous Rx's Medication Instructions Recorded cyclobenzaprine 5 mg PO TID PRN #15 tab 01/22/18 cyclobenzaprine 10 mg PO TID PRN #10 tab 03/17/18 Allergies Allergy/AdvReac Type Severity Reaction Status Date / Time No Known Allergies Allergy Unverified 01/22/18 16:25 General Stated Complaint: Nk/Back Pain GILBERTO: 3 Review of Systems Review of Systems All systems reviewed & are unremarkable except as noted in HPI and below Constitutional Reports as per HPI, Denies chills and Denies fever(s) Eyes Denies blurry vision ENT Denies dizziness, Denies sore throat and Denies throat swelling Cardiovascular Denies chest pain and Denies dyspnea Respiratory Denies dyspnea Gastrointestinal Denies abdominal pain, Denies diarrhea and Denies vomiting Genitourinary Denies hematuria and Denies dysuria Musculoskeletal Reports back pain and Denies numbness Integumentary/Breasts Denies lesions and Denies rash Neurologic Denies dizziness and Denies numbness Allergic/Immunologic Denies throat swelling [facility] Medical History Blunt chest trauma History of alcohol abuse TIA (transient ischemic attack) (~2003) Surgical History Clavicle Surgery Colonoscopy - MAC (01/24/17) EGD, diagnostic (03/21/16) Tibia Fracture Surgery diagnstic EGD (03/21/16) Family History Mother COPD (chronic obstructive pulmonary disease) Father Substance abuse Neoplasm Sister Migraines Social History Smoking/Tobacco Use Status: Former Tobacco Use Exam Const General: cooperative and no acute distress HENMT Head: normal to inspection Face and sinus: normal facial exam Eyes General: appearance normal, both eyes and all related structures Neck Neck: normal visual inspection and No submandibular swelling Lymphatic: no lymphadenopathy noted Chest Chest: normal inspection of the chest and no tenderness Resp Effort & Inspection: normal respiratory effort and able to speak in complete sentences Auscultation: clear to auscultation bilaterally Cardio Rate: tachycardic Rhythm: abnormal rhythm irregularly irregular GI Inspection: normal to inspection Palpation: soft, not firm, not rigid and nontender Auscultation: normal bowel sounds Male General Exam: Yes normal external exam Back/Spine/Pelvis Back: no CVA tenderness Thoracic/Lumbar Spine: thoracic and lumbar spine normal to inspection, No thoracic spinal tenderness and No lumbar spinal tenderness Pelvis: no pain with anterior-posterior compression Skin General skin exam: no rashes or lesions noted Neuro General: alert, awake and oriented x3 Cognition: normal cognition Speech: speech normal Motor: muscle tone normal throughout and strength 5/5 throughout Sensory Exam: no sensory deficits noted DTR's: Rt Patellar: 0, Lt Patellar: 0, Rt Ankle: 1+ and Lt Ankle: 1+ Plantar Reflexes: Equivocal: bilateral Extrem General: normal to inspection, full ROM, normal capillary refill, no calf tenderness bilaterally and no edema Right lower extremity: foot Details: vascular exam Details: dorsalis pedis pulse present and posterior tibial pulse present Left lower extremity: foot Details: vascular exam Details: dorsalis pedis pulse present and posterior tibial pulse present Psych Appearance: grossly normal Mental Status: mental status grossly normal Speech and Movement: speech and movement normal Affect: normal affect Course Vital Signs Temperature 97.7 F 03/17/18 12:04 Pulse 104 H 03/17/18 12:04 Respiratory Rate 18 03/17/18 12:04 Blood Pressure 111/65 03/17/18 12:04 Pulse Oximetry 97 03/17/18 12:04 Temperature 97.7 F 03/17/18 12:04 Temperature Source Temporal Artery Scan 03/17/18 12:04 Pulse 125 H 03/17/18 12:58 Respiratory Rate 18 03/17/18 12:58 Respiratory Effort Non-Labored 03/17/18 12:04 Blood Pressure 121/61 03/17/18 12:58 Blood Pressure Position Supine 03/17/18 12:04 Pulse Oximetry 99 03/17/18 12:58 Oxygen Delivery Method Room Air 03/17/18 12:58 Oxygen Flow Rate 0 03/17/18 12:58
--- NOTE | 2018-03-17 13:43 | ED.GENADUL_ITS ---
Discharge Plan Disposition Patient Disposition: HOME Condition: Stable Discharge Details Chief Complaint: Nk/Back Pain Clinical Impression: Chronic back pain, History of atrial fibrillation Primary Care Provider: Lala Cortes ED Provider: Regina George Home Meds and New Rx's Prescriptions: New cyclobenzaprine 10 mg tablet 10 mg PO TID PRN (Reason: muscle spasm) Qty: 10 RF: 0 Continued furosemide 40 mg tablet 40 mg PO DAILY PRNRF: 0 spironolactone 100 mg tablet PO DAILY RF: 0 propranolol 40 mg tablet 40 mg PO ONCE RF: 0 propranolol 20 mg tablet 20 mg PO ONCE RF: 0 acetaminophen 325 mg capsule 650 mg PO Q8H PRN RF: 0 magnesium oxide 400 mg capsule 400 mg PO BID PRNRF: 0 cyclobenzaprine 5 mg tablet 5 mg PO TID PRN (Reason: muscle spasm) Qty: 15 RF: 0 Discharge Instructions Instructions: Chronic Back Pain (ED) Additional Instructions: Alternate Tylenol and Motrin as needed and directed for pain. Alternate ice and heat to the affected area several times daily for 20 minutes at a time. Take your regular medications as directed. Refrain from abusing alcohol. If you decide to stop drinking, make sure you do it safely under the direction of a physician or detox. Call your primary care doctor on Tuesday morning to schedule follow-up appointment for reevaluation. Discharge Data Discharge Date/Time-TO BE ENTERED AT DEPARTURE: 03/17/18 18:14 Discharge Physician: Regina George Medical Decision Making 67-year-old male with a history of chronic alcohol abuse, with history of acute GI bleed due to esophageal varices status post banding at [facility] last month who presents for lower back pain for the past 5 weeks. Patient states he lifted a keg of beer a few weeks ago. Per records, patient had been in the hospital, so then he states it was prior to this so may have been 5-6 weeks ago. Patient was transferred to a rehab after [facility], and was discharged from the rehab 2 days ago. Patient states he is having difficulty with ADLs at home due to his pain and thinks he was discharged too soon from rehab. No chest pain, shortness of breath, abdominal pain, cauda equina symptoms. No focal deficits. Heart rate 120s. Appears consistent with atrial fibrillation. Also states his back pain is mid to lower back. Will obtain an EKG and chest x- ray to rule out widened mediastinum. At this point time I do not see an indication for acute lab work as he denies any chest pain shortness of breath or dizziness. Will give a dose of oxycodone and Valium p.o. for his pain. Case discussed with Jael from care management and he had refused home health. If no acute indication for admission, can likely be discharged home with plan for home health if patient is agreeable. No rehab would be available for transfer today or this weekend. EKG notes a rate of 114, atrial fibrillation, no acute ST elevation. Less than [address] depression in V3 seen in previous EKG. Patient has not yet taken his dose of propranolol. Will give now and reassess. 1600 --CXR negative. Heart rate has been stable in the 70s-80s. He has no complaints of chest pain or shortness of breath. Patient was able to ambulate around the ED with his walker which is his baseline. Did not did not want to go home. Care management discussed again with him at bedside and stated that he is open to home health but he refused them in the past because he did not think they could get into his home because of his dry weight is not mild. Care management offered him a jail but he is now agreeable with going home. Medical Records Medical records reviewed: Yes I reviewed the patient's medical records. Lab Data Lab results reviewed: Yes I reviewed the patient's lab results. Laboratory Tests Range/Units 03/17/18 03/17/18 14:55 14:55 WBC (4.4-10.8) k/cumm 5.37 RBC (4.50-6.00) m/cumm 3.54 L Hgb (13.5-17.5) g/dL 11.9 L Hct (40.0-50.0) % 34.0 L MCV (80-95) fL 96.0 H MCH (27.0-33.0) pg 33.6 H MCHC (32.0-36.0) g/dL 35.0 RDW (11.8-14.1) % 17.9 H Plt Count (130-400) x1000/uL 103 L MPV (8.0-11.0) fL 12.5 H Immature Gran % 0.0 Neutrophils % 51.4 Lymphocytes % 23.1 Monocytes % 22.5 Eosinophils % 2.4 Basophils % 0.6 Absolute Neutrophils (1.2-6.7) k/cumm 2.76 Absolute Lymphocytes (1.2-3.4) k/cumm 1.24 Absolute Monocytes (0.11-0.7) k/cumm 1.21 H Absolute Eosinophils (0.0-0.7) k/cumm 0.13 Absolute Basophils (0.0-0.2) k/cumm 0.03 Sodium (136-145) mmol/L 133 L Potassium (3.5-5.1) mmol/L 4.2 Chloride (98-107) mmol/L 97 L Carbon Dioxide (21.0-32.0) mmol/L 27.5 Anion Gap (3-11) mmol/L 8.5 BUN (7-18) mg/dL 14 Creatinine (0.70-1.30) mg/dL 1.26 Estimated GFR/1.73 m2 (mL/min/1.73m2) 57.26 Glucose (70-100) mg/dL 96 Calcium (8.5-10.1) mg/dL 9.2 Magnesium (1.8-2.4) mg/dL 1.7 L Total Bilirubin (0.2-1.0) mg/dL 2.8 H AST (15-37) U/L 42 H ALT (12-78) U/L 31 Alkaline Phosphatase (46-116) U/L 141 H Troponin I (0.00-0.06) ng/mL 0.02 Total Protein (6.4-8.2) g/dL 6.7 Albumin (3.4-5.0) g/dL 3.1 L ECG Data Attestation: I personally reviewed and interpreted this ECG (s) as follows: Interpretation: 1342 -- 114, atrial fibrillation, less than 1mm ST depression in V3 which is seen in previous, QTc 463, QRS 106. No acute ST elevation. HPI General Mode of arrival: EMS . Date/Time Provider Initiated Documentation: 03/17/18 12:15 . Limitations to Documentation: no limitations . Information obtained by: patient . HPI Narrative: Patient is a 67-year-old male with a history of chronic alcohol abuse, TIA, acute GI bleed due to esophageal varices 1 month ago s/p esophageal banding who presents to the ED with a complaint of back pain for the past 5 weeks. Patient states it started after lifting a keg. He initially stated it was 2 weeks ago, but based on medical records, patient had been in the hospital at that time. This was discussed with him and he now states it happened approximately 5 weeks ago. Patient states he has been able to ambulate but with pain. He has been taking Tylenol for pain without relief. Patient denies any fever, abdominal pain, urinary or fecal incontinence, saddle anesthesia, leg pain or weakness. He states he ambulates with a cane or walker at home. Patient states he needs help at home with chores due to his back pain. Related Data Home Medications Medication Instructions Recorded Confirmed cyclobenzaprine 5 mg PO TID PRN #15 tab 01/22/18 acetaminophen 325 mg capsule 650 mg PO Q8H PRN cap 03/06/18 03/17/18 furosemide 40 mg tablet 40 mg PO DAILY PRN 03/06/18 magnesium oxide 400 mg capsule 400 mg PO BID PRN cap 03/06/18 propranolol 20 mg tablet 20 mg PO ONCE tab 03/06/18 propranolol 40 mg tablet 40 mg PO ONCE tab 03/06/18 spironolactone 100 mg tablet PO DAILY tab 03/06/18 cyclobenzaprine 10 mg PO TID PRN #10 tab 03/17/18 Previous Rx's Medication Instructions Recorded cyclobenzaprine 5 mg PO TID PRN #15 tab 01/22/18 cyclobenzaprine 10 mg PO TID PRN #10 tab 03/17/18 Allergies Allergy/AdvReac Type Severity Reaction Status Date / Time No Known Allergies Allergy Unverified 01/22/18 16:25 General Stated Complaint: Nk/Back Pain GILBERTO: 3 Review of Systems Review of Systems All systems reviewed & are unremarkable except as noted in HPI and below Constitutional Reports as per HPI, Denies chills and Denies fever(s) Eyes Denies blurry vision ENT Denies dizziness, Denies sore throat and Denies throat swelling Cardiovascular Denies chest pain and Denies dyspnea Respiratory Denies dyspnea Gastrointestinal Denies abdominal pain, Denies diarrhea and Denies vomiting Genitourinary Denies hematuria and Denies dysuria Musculoskeletal Reports back pain and Denies numbness Integumentary/Breasts Denies lesions and Denies rash Neurologic Denies dizziness and Denies numbness Allergic/Immunologic Denies throat swelling [facility] Medical History Blunt chest trauma History of alcohol abuse TIA (transient ischemic attack) (~2003) Surgical History Clavicle Surgery Colonoscopy - MAC (01/24/17) EGD, diagnostic (03/21/16) Tibia Fracture Surgery diagnstic EGD (03/21/16) Family History Mother COPD (chronic obstructive pulmonary disease) Father Substance abuse Neoplasm Sister Migraines Social History Smoking/Tobacco Use Status: Former Tobacco Use Exam Const General: cooperative and no acute distress HENMT Head: normal to inspection Face and sinus: normal facial exam Eyes General: appearance normal, both eyes and all related structures Neck Neck: normal visual inspection and No submandibular swelling Lymphatic: no lymphadenopathy noted Chest Chest: normal inspection of the chest and no tenderness Resp Effort & Inspection: normal respiratory effort and able to speak in complete sentences Auscultation: clear to auscultation bilaterally Cardio Rate: tachycardic Rhythm: abnormal rhythm irregularly irregular GI Inspection: normal to inspection Palpation: soft, not firm, not rigid and nontender Auscultation: normal bowel sounds Male General Exam: Yes normal external exam Back/Spine/Pelvis Back: no CVA tenderness Thoracic/Lumbar Spine: thoracic and lumbar spine normal to inspection, No thoracic spinal tenderness and No lumbar spinal tenderness Pelvis: no pain with anterior-posterior compression Skin General skin exam: no rashes or lesions noted Neuro General: alert, awake and oriented x3 Cognition: normal cognition Speech: speech normal Motor: muscle tone normal throughout and strength 5/5 throughout Sensory Exam: no sensory deficits noted DTR's: Rt Patellar: 0, Lt Patellar: 0, Rt Ankle: 1+ and Lt Ankle: 1+ Plantar Reflexes: Equivocal: bilateral Extrem General: normal to inspection, full ROM, normal capillary refill, no calf tenderness bilaterally and no edema Right lower extremity: foot Details: vascular exam Details: dorsalis pedis pulse present and posterior tibial pulse present Left lower extremity: foot Details: vascular exam Details: dorsalis pedis pulse present and posterior tibial pulse present Psych Appearance: grossly normal Mental Status: mental status grossly normal Speech and Movement: speech and movement normal Affect: normal affect Course Vital Signs Temperature 97.7 F 03/17/18 12:04 Pulse 104 H 03/17/18 12:04 Respiratory Rate 18 03/17/18 12:04 Blood Pressure 111/65 03/17/18 12:04 Pulse Oximetry 97 03/17/18 12:04 Temperature 97.7 F 03/17/18 12:04 Temperature Source Temporal Artery Scan 03/17/18 12:04 Pulse 125 H 03/17/18 12:58 Respiratory Rate 18 03/17/18 12:58 Respiratory Effort Non-Labored 03/17/18 12:04 Blood Pressure 121/61 03/17/18 12:58 Blood Pressure Position Supine 03/17/18 12:04 Pulse Oximetry 99 03/17/18 12:58 Oxygen Delivery Method Room Air 03/17/18 12:58 Oxygen Flow Rate 0 03/17/18 12:58
[2018-03-17] MEDS: Diazepam 5 MG TAB PO (13:46)
[2018-03-17] MEDS: oxyCODONE 5 MG TAB PO (13:47)
--- NOTE | 2018-03-17 13:50 | DI.RAD_ITS ---
SYMPTOMS/DIAGNOSIS: WORSENING UPPER/LOWER BACK PAIN, ? WIDENED MEDIASTINUM CHEST X-RAY, FRONTAL AND LATERAL VIEWS: Comparison is 10/28/17. The heart is at the upper limits of normal in size but stable. Pulmonary vasculature is within normal limits. The lungs are clear. No effusions or pneumothoraces are identified. The lungs appear hyperinflated suggesting underlying COPD. The bones appear intact. IMPRESSION: No acute pulmonary process.
[2018-03-17] MEDS: Propranolol 40 MG TAB PO (14:33)
--- NOTE | 2018-03-17 14:34 | NUR.NOTE ---
Nursing Note: Per MD George, give 1/2 tab of 40mg propanalol
[2018-03-17 15:10] LABS: Absolute Basophil Count 0.03 k/cumm (0.0-0.2); Absolute Eosinophil Count 0.13 k/cumm (0.0-0.7); Absolute Lymphocyte Count 1.24 k/cumm (1.2-3.4); Absolute Monocyte Count 1.21 k/cumm (0.11-0.7); Absolute Neutrophil Count 2.76 k/cumm (1.2-6.7); Basophils % 0.6; Eosinophils % 2.4; HGB 11.9 g/dL (13.5-17.5); Lymphocytes % 23.1; Mean Corpuscular Hemoglobin 33.6 pg (27.0-33.0); Mean Platelet Volume 12.5 fL (8.0-11.0); Monocytes % 22.5; Neutrophils % 51.4; RBC 3.54 m/cumm (4.50-6.00); RBC Distribution Width 17.9 % (11.8-14.1); White Blood Cell Count 5.37 k/cumm (4.4-10.8)
[2018-03-17 15:21] LABS: ALT 31 U/L (12-78); AST 42 U/L (15-37); Albumin 3.1 g/dL (3.4-5.0); Alkaline Phosphatase 141 U/L (46-116); Anion Gap 8.5 mmol/L (3-11); BUN 14 mg/dL (7-18); Bilirubin, Total 2.8 mg/dL (0.2-1.0); CO2 27.5 mmol/L (21.0-32.0); CREATININE 1.26 mg/dL (0.70-1.30); Calcium 9.2 mg/dL (8.5-10.1); Chloride 97 mmol/L (98-107); Estimated GFR 57.26 (mL/min/1.73m2); Glucose 96 mg/dL (70-100); Magnesium 1.7 mg/dL (1.8-2.4); Potassium 4.2 mmol/L (3.5-5.1); Sodium 133 mmol/L (136-145); Total Protein 6.7 g/dL (6.4-8.2); Troponin I 0.02 ng/mL (0.00-0.06)
[2018-03-17 15:24] LABS: Platelet Count 103 x1000/uL (130-400)
--- NOTE | 2018-03-17 15:56 | NUR.NOTE ---
Nursing Note:Pt noted to be sleeping in bed. no acute changes. HR 90's
--- NOTE | 2018-03-17 16:17 | NUR.NOTE ---
Nursing Note: AMbulated patient in halls with walker, slow but steady gait.
--- NOTE | 2018-03-17 16:36 | NUR.NOTE ---
Nursing Note: Awaiting care management for discharge consult.
--- NOTE | 2018-03-17 17:06 | PDOC.ERCMPRO ---
- If Service Date Differs Date of service: 03/17/18 Time of Service: 17:06 Care Management Progress Note CM met with Kun at the bedside at the request of ED provider. Kun states he does not want to return home he states he can not clean his home due to back pain. He states he never stated he did not want home health he states they wont be able to get into the home due to snow build up. Kun ask if he can be sent to local warming center but retracts once he realizes he cannot stay during the day. Kun states he has been using alocohol since his discharge from SNF facility. He states he thought he could just come to the ED and return to rehab. Previous CM confirmed that Kun was discharged and met his goals while at the SNF. Please see ED CM note. CM provided resources that could assist patient in sobriety including contact information for [facility]. Kun states he meets with behavioral specilaist at [facility] and has a good relationship with his primary care Lala Cortes. He states that his back pain is chronic however it did become worse after lifting a few days ago. He states he is willing to return to his home, he request that home health be ordered. He agrees to Nursing, PT, OT, and ANDROID IOS DEVELOPER. 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 LARRY has contacted home health and provided update on referral and faxed over a paper face to face for services. CM contacted [facility] and arranged transportation home. CM will follow up with primary care chronic intensive care nurse on Tuesday. Patient and provider agree to plan. Home health will scheduled visit over the weekend.
--- NOTE | 2018-03-17 17:09 | CMPROGNOTE_ITS ---
- If Service Date Differs Date of service: 03/17/18 Time of Service: 17:06 Care Management Progress Note CM met with Kun at the bedside at the request of ED provider. Kun states he does not want to return home he states he can not clean his home due to back pain. He states he never stated he did not want home health he states they wont be able to get into the home due to snow build up. Kun ask if he can be sent to local warming center but retracts once he realizes he cannot stay during the day. Kun states he has been using alocohol since his discharge from SNF facility. He states he thought he could just come to the ED and return to rehab. Previous CM confirmed that Kun was discharged and met his goals while at the SNF. Please see ED CM note. CM provided resources that could assist patient in sobriety including contact information for [facility]. Kun states he meets with behavioral specilaist at [facility] and has a good relationship with his primary care Lala Cortes. He states that his back pain is chronic however it did become worse after lifting a few days ago. He states he is willing to return to his home, he request that home health be ordered. He agrees to Nursing, PT, OT, and UPKEEP WORKER. 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 LARRY has contacted home health and provided update on referral and faxed over a paper face to face for services. CM contacted [facility] and arranged transportation home. CM will follow up with primary care chronic residential care facility manager on Tuesday. Patient and provider agree to plan. Home health will scheduled visit over the weekend.
--- NOTE | 2018-03-17 17:14 | NUR.NOTE ---
patient moved to the [facility] with belongings Nursing Note:
--- NOTE | 2018-03-17 17:38 | NUR.NOTE ---
patient ate dinner, pain improved Nursing Note:
== END 2018-03-17 18:14 | disposition home or self-care (01) ==
PROVIDERS: Emergency Provider Physician Assistant; PCP Nurse Practitioner
DX: M54.5 Low back pain (principal); G89.29 Other chronic pain; I48.91 Unspecified atrial fibrillation; F10.10 Alcohol abuse, uncomplicated
CPT/HCPCS: 36415; 80053; 93005; 99284; 71046; 83735; 84484; 85025; 93010; 99285

== ENCOUNTER 2018-03-23 15:05 | Emergency (ER) | payer MEDICARE, SELFPAY ==
[2018-03-23 15:07] VITALS: BP 130/98; PULSE 81; TEMP 36.7; O2SAT 96
--- NOTE | 2018-03-23 15:25 | PDOC.ERCMPRO ---
Care Management Progress Note 03/23-Arrives via [facility] for back pain. [facility] reports that patient's driveway was plowed but the walkway was not and they had to shovel to get to the door. Once at the door, the door was frozen and they had to push in the door. [facility] stated that patient is peeing and has feces in a bucket. He is using a 20 lb propane tank with a propane heater to heat the house, although [facility] states that the house is as cold inside as outside. [place] states that the pipes are frozen. Patient states to rescue that he has drank this morning. Called Home Health and spoke with Rajwinder. Rajwinder stated that home health nursing did go out this morning but could not get to the house. Called Helen Rosado at [facility] to discuss housing. Helen called [facility] and they stated they could not put him up in housing as he is causing his own homelessness. Helen recommends the warming snf overnight. Notified nutritionist public health Bone Char Kiln Operator of the above. Upon arrival via rescue to the emergency department, Kun is sitting up on the stretcher, smiling, and easily engages in conversation. Kun has not been seen by medical for clearance at this time. Plan is for Kun to be sent to the warming snf once medically cleared.
--- NOTE | 2018-03-23 15:40 | CMPROGNOTE_ITS ---
Care Management Progress Note 03/23-Arrives via [facility] for back pain. [facility] reports that patient's driveway was plowed but the walkway was not and they had to shovel to get to the door. Once at the door, the door was frozen and they had to push in the door. [facility] stated that patient is peeing and has feces in a bucket. He is using a 20 lb propane tank with a propane heater to heat the house, although [facility] states that the house is as cold inside as outside. [place] states that the pipes are frozen. Patient states to rescue that he has drank this morning. Called Home Health and spoke with Rajwinder. Rajwinder stated that home health nursing did go out this morning but could not get to the house. Called Helen Rosado at [facility] to discuss housing. Helen called [facility] and they stated they could not put him up in housing as he is causing his own homelessness. Helen recommends the warming [facility]ci overnight. Notified precision agriculture technician Circulator of the above. Upon arrival via rescue to the emergency department, Kun is sitting up on the stretcher, smiling, and easily engages in conversation. Kun has not been seen by medical for clearance at this time. Plan is for Kun to be sent to the warming [facility] once medically cleared.
--- NOTE | 2018-03-23 16:53 | DI.RAD_ITS ---
SYMPTOMS/DIAGNOSIS: CONTINUED BACK PAIN IN L VERT LUMBAR SPINE: AP, lateral and bilateral oblique views. Comparison is 01/22/18. Since the prior examination, there has been further compression of the L 3 vertebral body. There is now loss of approximately 50% of the height of the vertebral body. There is now compression fracture deformity of the superior endplate of L 4 with loss of approximately a third of the height of the vertebral body. There is also now a compression fracture deformity of the superior endplate of L 2 with mild loss of height of the vertebral body. The bones are osteopenic. There are five lumbar type vertebral bodies. No spondylolysis or spondylolisthesis is seen. Extensive calcification of the abdominal aorta is noted. Degenerative changes are seen in the facet joints. IMPRESSION: 1. Worsened compression of the superior endplate of L 3 since 01/22/18. 2. Since the prior examination from 01/22/18, there has been superior compression fracture deformities of both L 2 and L 4. MRI should be considered for further evaluation.
[2018-03-23] MEDS: Lidocaine 5% Patch 1 PATCH TP (17:04)
--- NOTE | 2018-03-23 18:25 | DI.VRAD_ITS ---
EXAM: XR Lumbar Spine, 4 or 5 Views EXAM DATE/TIME: 03/23/2018 4:54 PM CLINICAL HISTORY: 67 years old, male; Pain; Low back pain TECHNIQUE: XR of the lumbar spine, 4 or 5 views. COMPARISON: CR XR lumbar spine complete 01/22/2018 4:33 PM FINDINGS: Vertebrae: Mild interval worsening in L3 chronic compression deformity, and now with approximately 45-50% loss in vertebral body height. New superior endplate compression deformity at L4 with approximately 25% loss in vertebral body height. Questionable new superior endplate compression deformity at L2 with no significant loss in vertebral body height. Patent spinal canal. Diffuse facet joint arthropathy. Gastrointestinal tract: Visualized bowel gas pattern is nonobstructive. Vasculature: The vasculature demonstrates diffuse marked atherosclerotic calcification. Soft tissues: Unremarkable. IMPRESSION: Worsening and new multilevel age indeterminate vertebral compression deformities, as detailed above. Consider further evaluation with MRI. Dictated and Authenticated by: Mk Magana MD. Ordering:LARISSA Garcia MD
--- NOTE | 2018-03-23 21:21 | ED.GENADUL_ITS ---
Discharge Plan Disposition Patient Disposition: HOME Condition: Good Discharge Details Chief Complaint: Nk/Back Pain Clinical Impression: Back pain Reason For Visit: ALISSA Primary Care Provider: Lala Cortes ED Provider: Jose Prince Home Meds and New Rx's Prescriptions: New prednisone 50 MG tablet 50 mg PO DAILY Qty: 5 RF: 0 lidocaine [Lidoderm] 1 PATCH patch 1 patch Topical Q24H Qty: 4 RF: 0 No Action furosemide 40 mg tablet 40 mg PO DAILY PRNRF: 0 spironolactone 100 mg tablet PO DAILY RF: 0 propranolol 40 mg tablet 40 mg PO ONCE RF: 0 propranolol 20 mg tablet 20 mg PO ONCE RF: 0 acetaminophen 325 mg capsule 650 mg PO Q8H PRN RF: 0 magnesium oxide 400 mg capsule 400 mg PO BID PRNRF: 0 cyclobenzaprine 5 mg tablet 5 mg PO TID PRN (Reason: muscle spasm) Qty: 15 RF: 0 cyclobenzaprine 10 mg tablet 10 mg PO TID PRN (Reason: muscle spasm) Qty: 10 RF: 0 Discharge Instructions Instructions: Back Pain (ED) Additional Instructions: Please take medication as directed. We will bring it to the [facility]. When you are there please ask for Ms. Silva or Helen to set you up with community connections. We will set up follow-up appointment with you at the [facility]. Please follow-up with your primary care provider immediately for reevaluation as well as potential outpatient MRI on an outpatient basis. If you notice any inability to ambulate, urinate, have a bowel movement, or if you have numbness or tingling in your groin please return immediately. If you notice any worsening of your symptoms, or any new symptoms such as vomiting, diarrhea, fe pedro pablo, chills, shortness of breath, chest pain, numbness, weakness, or fainting , please return immediately to the emergency department for reevaluation. Please follow up with your primary care provider as soon as possible for reassessment and reevaluation. As always, it was a pleasure participating in your medical care today. Referrals: Lala Cortes, [facility]ER [Primary Care Provider] - Medical Decision Making This is a 67-year-old male who presents today for evaluation of chronic back pain for the last 5 weeks, and more importantly to the patient he would like a place to go for the night. In regards to his back pain is been present for the last 5 weeks, it started after lifting a heavy keg, he was recently seen and assessed here by my colleague and was found to have no concerning neurologic deficits or red flags on exam. He was discharged home with NSAIDs and muscle relaxants for pain. The patient's pain is continued but not worsened. Current physical exam demonstrates no signs of cauda equina syndrome, and a physical exam clinically inconsistent with cord compression. Because of the patient's age I did get an x-ray which does reveal worsening vertebral compression deformities, but no signs of protrusion of osseous components into the spinal canal. Patient does have notable paraspinal muscle tenderness, which I feel is secondary to his notable chronic vertebral pathology. I did place a Lidoderm patch, and we did give the first dose of steroids here, and the patient had improvement of the symptoms. We did contact case management, and they were well aware of the patient. On his last visit they did exhaust multiple options at that time for potential placement. They have reviewed the patient's clinical scenario today, and recommend that he go to the [facility], for which she can start working with [facility] for community connection placement. Because of the patient's notable chronic back pain, as well as his chronic vertebral compression fractures, I do feel that he would benefit from referral to the [facility] spine center. I also recommended to the patient the importance of close follow-up with his primary care provider, potential MRI on an outpatient basis. With no signs of cord compression, clinical exam and consistent with lower neurologic pathology, pain controlled and improved, as well as sleeping options that have been arranged for the patient [facility], I feel that he can be safely discharged home. We discussed red flags which to return. I have extensively reviewed the treatment plan and discharge instructions with the patient. I have addressed all patient concerns at this time. The patient was made aware of what symptoms to monitor for that would warrant a return to the emergency department. Discussed the plan with the patient, they demonstrate verbal understanding and agreement with our assessment and plan at this time. FINDINGS: Vertebrae: Mild interval worsening in L3 chronic compression deformity, and now with approximately 45-50% loss in vertebral body height. New superior endplate compression deformity at L4 with approximately 25% loss in vertebral body height. Questionable new superior endplate compression deformity at L2 with no significant loss in vertebral body height. Patent spinal canal. Diffuse facet joint arthropathy. Gastrointestinal tract: Visualized bowel gas pattern is nonobstructive. Vasculature: The vasculature demonstrates diffuse marked atherosclerotic calcification. Soft tissues: Unremarkable. IMPRESSION: Worsening and new multilevel age indeterminate vertebral compression deformities, as detailed above. Consider further evaluation with MRI. Dictated and Authenticated by: Mk Magana MD. HPI General Date/Time Provider Initiated Documentation: 03/23/18 15:32 . HPI Narrative: Patient is a 67-year-old male with a history of chronic alcohol abuse, TIA, acute GI bleed due to esophageal varices 1 month ago s/p esophageal banding who presents to the ED with a complaint of back pain for the past 5 weeks. He began while he was lifting a keg of beer 5 weeks ago. He was seen here in the emergency department 4 days ago, he demonstrated no signs of cauda equina syndrome at that time, no other concerning red flags on physical exam. Vital signs are reassuring. The patient was concerned that he was having a hard time at home, case management was involved, the patient refused home health at that time, and was eventually discharged home with some pain medications and muscle relaxants. Patient presents today for continued low back pain, but he states that more importantly he is really here because he is types of frozen at his house, he no longer has heat, and he would like a place to stay. He denies any red flags of numbness or tingling in his legs, weakness in his legs, bowel or bladder incontinence, saddle anesthesia, change in his back pain, fever, chills, IV or illicit drug use, recent falls or trauma. Patient does say that he has some slight difficulty performing some of his various ADLs at home. He denies any other complaints or modifying factors at this time. He has been using Tylenol for pain this only slightly improves his symptoms. He has occasionally been using the muscle relaxant. Related Data Home Medications Medication Instructions Recorded Confirmed cyclobenzaprine 5 mg PO TID PRN #15 tab 01/22/18 acetaminophen 325 mg capsule 650 mg PO Q8H PRN cap 03/06/18 03/17/18 furosemide 40 mg tablet 40 mg PO DAILY PRN 03/06/18 magnesium oxide 400 mg capsule 400 mg PO BID PRN cap 03/06/18 propranolol 20 mg tablet 20 mg PO ONCE tab 03/06/18 propranolol 40 mg tablet 40 mg PO ONCE tab 03/06/18 spironolactone 100 mg tablet PO DAILY tab 03/06/18 cyclobenzaprine 10 mg PO TID PRN #10 tab 03/17/18 lidocaine [Lidoderm] 1 patch TOPICAL Q24H #4 patch 03/23/18 prednisone 50 mg PO DAILY #5 tab 03/23/18 Previous Rx's Medication Instructions Recorded cyclobenzaprine 5 mg PO TID PRN #15 tab 01/22/18 cyclobenzaprine 10 mg PO TID PRN #10 tab 03/17/18 lidocaine [Lidoderm] 1 patch TOPICAL Q24H #4 patch 03/23/18 prednisone 50 mg PO DAILY #5 tab 03/23/18 Allergies Allergy/AdvReac Type Severity Reaction Status Date / Time No Known Allergies Allergy Unverified 01/22/18 16:25 General Stated Complaint: Nk/Back Pain GILBERTO: 4 Review of Systems Review of Systems All systems reviewed & are unremarkable except as noted in HPI and below PFSH Social History Smoking/Tobacco Use Status: Former Tobacco Use Exam Narrative Exam Narrative: 1.Const: Well-nourished, appearing slightly disheveled, appearing stated age 2.Eyes: PERRL, no conjunctival injection, and symmetrical lids. 3.ENT: Atraumatic external nose and ears. Moist MM. Neck: Symmetric, trachea midline, No thyromegaly. 4.CVS: +S1/S2, No murmurs or gallops. Peripheral pulses 2+ and equal in all extremities. Brisk capillary refill in all extremities. 5.RESP: Unlabored respiratory effort. Clear to auscultation bilaterally. No wheezes rales or rhonchi 6.GI: Soft, Nontender/Nondistended, No hepatosplenomegaly. No guarding or rebound. 7.MSK: Normocephalic/Atraumatic, Extremities w/o deformity or ttp No cyanosis or clubbing, Normal movement of all extremities. No midline tenderness to palpation over the CTLS spine. Patient does have some notable paraspinal tenderness over the thoracic and lumbar spine. Normal ROM in flexion, extension, side bend, and rotation. Patient has +5 out of 5 strength in the lower extremities in dorsiflexion and plantarflexion, knee flexion and extension, hip flexion and extension. There is +2 over 2 dorsalis pedis pulses bilaterally. There is normal sensation to the skin with light touch at the foot, knee, and hip. Normal saddle sensation. Good sensation over the deep sural nerve area bilaterally. Rectal exam demonstrates good rectal tone, and good perirectal sensation. +5 out of 5 strength in the medial, ulnar, radial nerve distribution bilaterally in the hands as well as intact light touch sensation to these dermatomes on the hands. 8.Skin: Warm, Dry. No rashes or lesions. 9.Neuro: All 6 cardinal planes of vision are fully intact. No evidence of rotatory or vertical nystagmus. The patient demonstrated a normal [id number], good dexterity. There was no evidence of dysdiadochokinesia. Patient was able to ambulate without difficulty. There was no wide-based gait. Romberg, and [id number] are both normal on testing. Sensation was intact bilaterally as well as muscle strength bilaterally for all extremities. Patient was able to verbalize butter cup with no slurring, or miss pronunciation. 10.Psych: (AAO) x3. Appropriate mood and affect Course Vital Signs Temperature 36.7 C 03/23/18 15:07 Pulse 81 03/23/18 15:07 Blood Pressure 130/98 H 03/23/18 15:07 Pulse Oximetry 96 03/23/18 15:07 Temperature 36.7 C 03/23/18 15:07 Temperature Source Temporal Artery Scan 03/23/18 15:07 Pulse 81 03/23/18 15:07 Respiratory Effort Non-Labored 03/23/18 15:09 Blood Pressure 130/98 H 03/23/18 15:07 Blood Pressure Position Sitting 03/23/18 15:07 Pulse Oximetry 96 03/23/18 15:07 Oxygen Delivery Method Room Air 03/23/18 15:07 Oxygen Flow Rate 0 03/23/18 15:07
[2018-03-23 21:43] VITALS: BP 139/79; PULSE 98; RESP 18; O2SAT 99
== END 2018-03-23 21:52 | disposition home or self-care (01) ==
PROVIDERS: Emergency Provider Student in an Organized Health Care Education/Training Program; PCP Nurse Practitioner
DX: M54.5 Low back pain (principal); G89.29 Other chronic pain
CPT/HCPCS: 99283; 72110; J7512